=== PATIENT | male | born 1980 | race Two or more races ===

== ENCOUNTER 2021-07-25 14:26 | Emergency (ER) | payer OTHER, SELFPAY ==
[2021-07-25 14:40] VITALS: BP 144/79; PULSE 76; RESP 16; TEMP 36.6; O2SAT 99
--- NOTE | 2021-07-25 14:51 | ED.LOWEXIN ---
HPI - Extremity Injury (Lower) General Chief Complaint: Extremity Injury, Lower Stated Complaint: LEFT KNEE PAIN Source: patient and RN notes reviewed Mode of arrival: ambulatory Limitations: no limitations History of Present Illness HPI Narrative: Rich is a 40 year old female who ambulated into the [facility]. He states he is having left knee pain and swelling. He denies any injury. He states there is swelling in back of knee. 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 He has been wearing an elastic knee brace and using ice to area. Patient states it is worse the last few days. MD complaint: knee injury Related Data Allergies Allergy/AdvReac Type Severity Reaction Status Date / Time Sulfa (Sulfonamide Allergy Unknown Verified 06/17/18 15:00 Antibiotics) Review of Systems Review of Systems: CONSTITUTIONAL: Denies body aches, fever, chills, or sweats. EYES: Denies visual changes, redness, or discharge. ENT: Denies rhinorrhea, congestion, sore throat, or otalgia. CARDIOVASCULAR: Denies chest pain, palpitations, or edema. RESPIRATORY: Denies cough or dyspnea. GASTROINTESTINAL: Denies abdominal pain, nausea, vomiting, or diarrhea. GENITOURINARY: Denies dysuria or hematuria. SKIN: Denies rash, itching, or wounds. MUSCULOSKELETAL: Denies back pain,+ left knee pain, or myalgia. NEUROLOGIC: Denies headache, numbness, tingling, or weakness. PSYCH: Denies depression or anxiety. All systems reviewed & are unremarkable except as noted in HPI and below PMFSH Comments At time of signature, I have reviewed and agree with nursing past medical, surgical, social and family history unless otherwise noted. Please see nursing chart for further information. There is no relevant family history pertinent to the presenting complaint Exam Narrative: GENERAL: Well-appearing, well-nourished, and in no acute distress. HEAD: Normocephalic, atraumatic. EYES: EOMI. No redness or drainage. Conjunctivae normal. ENT: Mucous membranes pink and moist. Nares clear. No rhinorrhea. NECK: Normal AROM. Supple. . CHEST: No respiratory distress. MUSCULOSKELETAL: No bony tenderness;small area of swelling posterior knee, pain with palpation to left lateral knee, negative posterior drawer test; negative homans sign EXTREMITIES: Normal range of motion. No edema. SKIN: Warm, dry, no rash. Capillary refill normal. Normal skin turgor. NEURO: No focal deficits. Alert and oriented x3. Gait steady. PSYCH: Normal affect. No signs of depression or anxiety. Course Vital Signs Vital signs: Vital Signs Temperature 36.6 C 07/25/21 14:40 Pulse Rate 76 07/25/21 14:40 Respiratory Rate 16 07/25/21 14:40 Blood Pressure 144/79 H 07/25/21 14:40 Pulse Oximetry 99 07/25/21 14:40 Temperature 36.6 C 07/25/21 14:40 Pulse Rate 76 07/25/21 14:40 Respiratory Rate 16 07/25/21 14:40 Blood Pressure 144/79 H 07/25/21 14:40 Pulse Oximetry 99 07/25/21 14:40 Reviewed. Pt has been instructed to follow up with his PCP regarding his elevated blood pressure today. MDM - Extremity Injury (Lower) MDM Narrative Medical decision making narrative: Left knee has a moderate area of swelling posterior knee which could be a possible Tripathi's cyst.. Negative posterior drawer test. Pain with palpation to the left lateral knee. Patient has a history of crawling around on his knees during long work days. Patient was started on Naprosyn and prednisone and referral to orthopedic surgeon was made. Differential Diagnosis Differential diagnosis: Likely ankle sprain and strain, acute internal derangement of knee and other (Knee sprain,) Critical Care Time Critical Care Time Critical Care Time: No Discharge Plan Discharge Clinical Impression: Acute knee pain Qualifiers: Laterality: left Qualified Code(s): M25.562 - Pain in left knee Patient Disposition: Home, Self-Care Condition: Stable Instructions: Antibiot
== END 2021-07-25 15:10 | disposition home or self-care (01) ==
PROVIDERS: Emergency Provider Nurse Practitioner Family
DX: M25.562 Pain in left knee (principal)
CPT/HCPCS: 99212; G0463

== ENCOUNTER → 2021-08-27 15:32 | Outpatient (CLI) | payer OTHER, SELFPAY ==
--- NOTE | ~2021-08-27 | XR_ITS ---
EXAMINATION: XR knee LT 2V EXAM DATE: 08/27/2021 15:46 INDICATION: M25.569 - Pain in unspecified knee. TECHNIQUE: Frontal and lateral projections of the left knee. There is no prior study for comparison . FINDINGS: There are no acute left knee fractures or dislocations identified. There is no subcutaneou s gas. There is small joint effusion. There is mild patellofemoral primary osteoarthritis. There are no radiopaque foreign bodies. IMPRESSION: 1. Mild left patellofemoral osteoarthritis. 2. Small joint effusion. Reviewed, dictated and finalized at location A. 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
== END ==
LOC: EXPCRAD 15:34
PROVIDERS: PCP Emergency Medicine; Visit Provider Emergency Medicine
DX: M25.462 Effusion, left knee (principal); M17.12 Unilateral primary osteoarthritis, left knee
CPT/HCPCS: 73560

== ENCOUNTER 2024-01-28 08:17 | Outpatient (CLI) | payer BC, SELFPAY | END 2024-01-28 08:18 | disposition home or self-care (01) | PROVIDERS: PCP Physician Assistant; Visit Provider Physician Assistant | DX: M25.562 Pain in left knee (principal) | CPT/HCPCS: 73562 ==

== ENCOUNTER 2024-04-15 13:53 | Emergency (ER) | payer OTHER, BC, SELFPAY ==
[2024-04-15 14:05] VITALS: BP 142/92; PULSE 81; RESP 16; TEMP 37; O2SAT 100
--- NOTE | 2024-04-15 14:05 | ED.GENADULT ---
HPI - General Adult General Chief complaint: Wound/Laceration Stated complaint: Stitches Removal Time Seen by Provider: 04/15/24 14:08 Source: patient, RN notes reviewed and old records reviewed Mode of arrival: ambulatory Limitations: no limitations History of Present Illness HPI narrative: 43-year-old male presents to the [facility] requesting 3 sutures removed. Patient reports that the replaced on the as [facility]. Currently has a splint on, states he has been working. Does not need a work note. Patient states that he has to wear the splint until the end of April due to the tip of his finger bone also being broken. Fifth finger right hand Has a follow-up with his primary care provider for further evaluation Patient reports he is just here to have the 3 stitches removed Related Data Home Medications Medication Instructions Recorded Confirmed No Home Medications 04/15/24 04/15/24 Allergies Allergy/AdvReac Type Severity Reaction Status Date / Time Sulfa (Sulfonamide Allergy Unknown Unknown Verified 04/15/24 13:56 Antibiotics) Review of Systems Review of Systems: All systems reviewed & are unremarkable except as noted in HPI and below Constitutional: Constitutional: Reports no additional constitutional complaints Eyes: Eyes: Reports no additional eye complaints ENT: Reports system reviewed and no additional complaints, except as documented Cardiovascular: Cardiovascular: Reports no additional cardiovascular complaints, Denies chest pain and Denies dyspnea Respiratory: Respiratory: Reports no additional respiratory complaints, Denies chest congestion, Denies cough and Denies dyspnea Gastrointestinal: Gastrointestinal: Reports no additional gastrointestinal complaints, Denies abdominal pain, Denies nausea and Denies vomiting Musculoskeletal: Musculoskeletal: Reports no additional musculoskeletal complaints Integumentary/Breasts: Skin/Breast: Reports as per HPI Neurologic: Reports system reviewed and no additional complaints, except as documented Psychiatric: Psychiatric: Reports no additional psychiatric complaints Allergic/Immunologic: Allergic/Immunologic: Reports no additional allergic/immunologic complaints [facility] Past Medical History Medical History Chicken pox Hernia (~2006) Surgical History Surgical History History of removal of cyst (~2007) Family History Family History Father , 75 Dementia Mother No problems noted. Social History Social History Social History: Patient drinks 3 cups of caffeine daily. 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 There is no relevant family history pertinent to the patient complaint. Exam Const: General: cooperative, healthy appearing, comfortable, no acute distress, well developed, alert and well nourished Nutritional Appearance: well nourished Orientation/consciousness: patient oriented x3 Limita
== END 2024-04-15 14:25 | disposition home or self-care (01) ==
PROVIDERS: Emergency Provider Nurse Practitioner; PCP Physician Assistant
DX: S61.216D Laceration without foreign body of right little finger without damage to nail, subsequent encounter (principal); X58.XXXD Exposure to other specified factors, subsequent encounter; F17.210 Nicotine dependence, cigarettes, uncomplicated
CPT/HCPCS: 99211; G0463

== ENCOUNTER → 2024-05-04 08:53 | Outpatient (CLI) | payer BC, SELFPAY ==
--- NOTE | ~2024-05-04 | XR_ITS ---
XR finger 5th LT min 2V Ordering provider: Suha Kim, IRMA History: . follow up fx . Comparison: None. FINDINGS: BONES: oblique fracture is seen in the distal phalanx of the little finger. No significant displaceme nt seen. JOINT SPACES: Normal. SOFT TISSUES: Normal. IMPRESSION: Fracture distal phalanx of the little finger. Reviewed, dictated and finalized at location A.
== END ==
LOC: EXPCRAD 08:57
PROVIDERS: PCP Physician Assistant; Visit Provider Physician Assistant
DX: S62.637A Displaced fracture of distal phalanx of left little finger, initial encounter for closed fracture (principal); X58.XXXA Exposure to other specified factors, initial encounter
CPT/HCPCS: 73140

== ENCOUNTER → 2024-06-10 08:34 | Outpatient (CLI) | payer OTHER, BC, SELFPAY ==
--- NOTE | ~2024-06-10 | XR_ITS ---
EXAMINATION: XR finger 5th LT min 2V DATE: 06/10/2024 08:48 INDICATION: Left hand fifth digit fracture. TECHNIQUE: 2 views of left hand fifth digit were obtained. COMPARISON: Left hand fifth digit radiographs 05/04/2024 FINDINGS: There is an extra-articular oblique fracture of fifth distal phalanx in near-anatomic align ment. No visible callus. Joint spaces are normal. IMPRESSION: 1. Unchanged oblique fracture of fifth distal phalanx. Reviewed, dictated and finalized at location A.
== END ==
LOC: EXPCRAD 08:38
PROVIDERS: PCP Physician Assistant; Visit Provider Physician Assistant
DX: S62.522D Displaced fracture of distal phalanx of left thumb, subsequent encounter for fracture with routine healing (principal); X58.XXXD Exposure to other specified factors, subsequent encounter
CPT/HCPCS: 73140

== ENCOUNTER → 2024-07-09 08:23 | Outpatient (CLI) | payer OTHER, SELFPAY ==
--- NOTE | ~2024-07-09 | XR_ITS ---
XR finger 5th LT min 2V 07/09/2024 08:42 Indication: Follow-up fracture Procedure: 3 views left fifth finger Comparison: Comparison to multiple prior studies sequentially, with oldest reviewed study dated 05/04. Findings: Stable alignment of minimally displaced oblique fracture left fifth distal phalanx with dev eloping callus formation. Mild soft tissue swelling. No foreign bodies. Impression: 1: Stable alignment of healing minimally displaced extra-articular fracture left fifth distal phalanx . Reviewed, dictated and finalized at location B. Impression: 1: Stable alignment of healing minimally displaced extra-articular fracture lef t fifth distal phalanx.
== END ==
PROVIDERS: PCP Physician Assistant; Visit Provider Physician Assistant
DX: S62.637D Displaced fracture of distal phalanx of left little finger, subsequent encounter for fracture with routine healing (principal); X58.XXXD Exposure to other specified factors, subsequent encounter
CPT/HCPCS: 73140